=== PATIENT | female | born 1945 | race Caucasian/White ===

== ENCOUNTER → 2017-04-06 | Outpatient (CLI) | payer MEDICARE, OTHER ==
[~2017-04-06] MED LIST: ASPIRIN 81MG TA81 MG PO
--- NOTE | 2017-04-06 10:54 | RADIOLOGY REPORT PS360 ---
BONE DENSITOMETRY(HIP:LT SPINE HISTORY: POSTMENOPAUSAL ORDERING PHYSICIAN: Ca Webster MD PATIENT AGE: 71 years COMPARISON: None FINDINGS: The BMD measured at the left femoral neck is 0.641 g/cm squared with a T score of -2.9. This is considered osteoporotic according to the World Health Organization criteria. Fracture risk is high. Pharmacological treatment should be started if not already prescribed. IMPRESSION: Osteoporosis. Recommend follow-up exam March 2018
== END ==
LOC: RAD 09:40
DX: Z13.820 Encounter for screening for osteoporosis (principal); Z78.0 Asymptomatic menopausal state

== ENCOUNTER 2017-05-06 13:30 | Outpatient (CLI) | payer MEDICARE, OTHER ==
[2017-05-06] MEDS ORDERED: CALTRATE 600 +1 TA1 PO (13:33)
[2017-05-06] MEDS ORDERED: VITAMIN E 400400 IU PO (13:35)
[2017-05-06] MEDS ORDERED: TRAZODONE 50MG50 MG PO (13:35)
[2017-05-06] MEDS ORDERED: VITAMIN D50000 UNIT PO (13:36)
[2017-05-06] MEDS ORDERED: FISH OIL1000 MG PO (13:37)
[2017-05-06] MEDS ORDERED: MIRALAX17 GM/PACK PO (13:38)
[2017-05-06 14:11] LABS: GFR (ESTIMATED) 99 ML/MIN (59-)
[2017-05-06 14:32] VITALS: BP 140/60
[2017-05-06 14:50] VITALS: BP 126/79
[2017-05-06 15:05] VITALS: BP 132/65
[2017-05-06 15:15] VITALS: BP 122/64
== END 2017-05-06 15:20 | disposition home or self-care (01) ==
LOC: COP 13:30
PROVIDERS: Family Medicine
DX: M81.0 Age-related osteoporosis without current pathological fracture (principal)
CPT/HCPCS: J3489